=== PATIENT | female | born 1990 | race Caucasian/White ===

== ENCOUNTER 2016-08-07 11:55 | Emergency (ER) | payer OTHER ==
[2016-08-07 14:06] VITALS: BP 113/84
--- NOTE | 2016-08-17 15:34 | UC ---
General HPI - HPI Summary HPI Summary: Pt here w/ depression. She has known depression and PTSD from events during her childhood. Has seen many counselors, none of which she has found to be helpful. She was also released from her PCP's office d/t a disagreement w/ her provider - pt admits she was very upset when her PCP thought she was drug seeking as she reports she watched her mom use crack growing up which has caused many issues for her mentally/emotionally. She is not taking any medication for her depression/PTSD conditions. She has a small child and although her is emotionally supportive, he is very engaged with his business and therefore unable to help with rearing the child on a day to day basis. Pt reports she's tried inviting people over/out for mom/child play dates, etc w/o success. She feels people are avoiding her because they don't want to be around her in this depressed state. Concerned her child is not getting adequate socialization as a result as well. Denies SI/HI but just couldn't take it anymore today, so came in to see if anything could be done as she's tired all the time, not eating ( just doesn't feel like it, too much work) and overall lack of self care. She continues to provide for her child w/o neglect there but struggling each day. Has tried to have stay home a few hours to see if this could help, but seemed to be of little help and added stress to his professional goals of running a business. Additionally, she has some URI sx - mild throat irritation, nasal congestion, dry cough. Denies adriana fever, chills, N/V/D, rash, ab pain, myalgias. Thinks she has allergies as well. - History of Current Complaint Chief Complaint: UCGeneralIllness Stated Complaint: SINUS COMPLAINT Time Seen by Provider: 08/07/16 14:33 Hx Obtained From: Patient Pain Intensity: 0 - Allergy/Home Medications Allergies/Adverse Reactions: Allergies Allergy/AdvReac Type Severity Reaction Status Date / Time No Known Allergies Allergy Verified 08/13/16 07:58 PMH/Surg Hx/FS Hx/Imm Hx Previously Healthy: Yes Endocrine History Of: Denies: Diabetes, Thyroid Disease Cardiovascular History Of: Denies: Cardiac Disorders, Hypertension Respiratory History Of: Denies: COPD, Asthma GI/ History Of: Denies: Ulcer Psychological History Of: Reports: Anxiety, Depression - Surgical History Surgical History: None - Family History Known Family History: Positive: Other - substance abuse - mom used crack Negative: Hypertension, Diabetes Family History: Her father past away from COPD and he was homeless. - Social History Occupation: Unemployed - stay at home mom Lives: With Family - and child Alcohol Use: Rare Alcohol Amount: 1 DRINK/NIGHT Substance Use Type: None Substance Use Comment - Amount & Last Used: occasional Smoking Status (MU): Former Smoker Type: Cigarettes Amount Used/How Often: quit in 2014 Have You Smoked in the Last Year: Yes - Immunization History Most Recent Influenza Vaccination: declined 05/06/14 Most Recent Tetanus Shot: 06/14/14 Most Recent Pneumonia Vaccination: none Review of Systems Constitutional: Negative Skin: Negative Eyes: Negative ENT: Other - see HPI Respiratory: Other - see HPI Cardiovascular: Negative Gastrointestinal: Negative Genitourinary: Negative Motor: Negative Neurovascular: Negative Musculoskeletal: Negative Neurological: Negative Psychological: Other - see HPI - DENIES SI/HI All Other Systems Reviewed And Are Negative: Yes Physical Exam Triage Information Reviewed: Yes Appearance: No Pain Distress, Thin - ANXIOUS, upset - no signs of self-harm other than underweight but per report, this does not appear to be intentional although cannot definitively report at this time - appears to be more a 2ndry effect of depression, not primarily an eating d/o; hygiene is adequate Vital Signs: Initial Vital Signs Temp 98.9 F 08/07/16 13:54 Pulse 77 08/07/16 13:54 Resp 20 08/07/16 13:54 BP 113/84 08/07/16 13:54 Pulse Ox 100 08/07/16 13:54 Eye Exam: Normal Eyes: Positive: Conjunctiva Clear ENT Exam: Normal ENT: Positive: Hearing grossly normal, Pharynx normal, Nasal congestion - very mild, TMs normal. Negative: Nasal drainage, Tonsillar swelling, Tonsillar exudate Dental Exam: Normal Neck exam: Normal Neck: Positive: Supple, Nontender, No Lymphadenopathy Respiratory Exam: Normal Respiratory: Positive: Lungs clear, Normal breath sounds. Negative: Crackles, Rhonchi, Stridor, Wheezing Cardiovascular Exam: Normal Cardiovascular: Positive: RRR, No Murmur Abdominal Exam: Normal Abdomen Description: Positive: Nontender, No Organomegaly, Soft Bowel Sounds: Positive: Present Musculoskeletal Exam: Normal Musculoskeletal: Positive: Strength Intact Neurological Exam: Normal Neurological: Positive: Alert Psychological: Positive: Other: - anxious, tearful at times, hyperverbal - denies SI/HI Skin Exam: Normal Course/Dx - Course Course Of Treatment: Pt presents w/ acute on chronic depression. H/o PTSD and depression - wondering if there is a component of post depression here - since she denies SI/HI, cannot involuntarily commit. Explained she may go to ED for evaluation and consult w/ MH provider today if she feels this is pressing. Otherwise, may follow-up with a MH provider in the community ([facility]) and/or establish with a new PCP for referral as necessary. Education about importance of eating as lack of nutrition exacerbates anxiety/ depression as well as suppresses the immune system. Encouraged to try to make herself eat/drink at least small amounts to maintain better energy until she can get in w/ a MH provider for more guidance. Also discussed that medications would not be appropriate to start through this venue, however her PCP and/or MH provider may recommend one or multiple pending a formal intake. She declined to go to ED today - agrees w/ plan to establish w/ PCP and go to ED if SI/HI present and/or if she simply feels she cannot take care of her child. She feels safe to take care of her child at this time. Also reviewed URI sx - may be mild viral infection which she can tx w/ supportive care. May also be allergies and tx is almost same. Advised to return or f/u w/ PCP if sx persist or worsen. >30 mins spent counseling, planning and d/c'ing - Differential Dx - Multi-Symptom Provider Diagnoses: 1) Depression. 2) URI Discharge - Discharge Plan Condition: Stable Disposition: HOME Patient Education Materials: Depression (ED), Upper Respiratory Infection (ED) Referrals: [facility] [Outside] Additional Instructions: It is encouraged that you stay hydrated by drinking water, gatorade, juice, etc to prevent dehydration which can lead to dizziness and fatigue. You may also try eating small meals every 3 hours to prevent low sugar which can cause dizziness and fatigue as well as exacerbate your depression and feelings of anxiety. Please follow-up with a PCP [facility] - call the referral line this week to establish with a new provider. They may be able to help you with a treatment plan through their practice as well as refer to specialist as needed. *If you feel like you want to hurt yourself or someone else, please go to the ED or call 911. For your respiratory symptoms, you may try saline nasal rinse, throat gargles, tea and lozenges to help with your sore throat, ear pain/pressure and sinus pain /pressure. *If you develop fever, chills, eye pain, vomiting, diarrhea, syncope, go to ED
== END 2016-08-07 15:23 | disposition home or self-care (01) ==
LOC: UCEAST 11:55
DX: F32.9 Major depressive disorder, single episode, unspecified (principal); J06.9 Acute upper respiratory infection, unspecified; F41.9 Anxiety disorder, unspecified; Z87.891 Personal history of nicotine dependence
CPT/HCPCS: 99211; G0463

== ENCOUNTER 2016-08-13 07:26 | Emergency (ER) | payer OTHER ==
[2016-08-13 08:25] LABS: Hematocrit 41 % (35-47); Hemoglobin 13.6 g/dl (12.0-16.0); Mean Corpuscular HGB Conc 33 g/dl (31-36); Mean Corpuscular Hemoglobin 29 pg (27-31); Mean Corpuscular Volume 88 fL (80-97); Mean Platelet Volume 7 um3 (7.4-10.4); Red Blood Count 4.69 10^6/ul (4.0-5.4); Red Cell Distribution Width 14 % (10.5-15); White Blood Count 6.1 10^3/ul (3.5-10.8)
[2016-08-13 08:41] LABS: Anion Gap 5 mmol/L (2-11); Blood Urea Nitrogen 9 mg/dL (6-24); CO2 Carbon Dioxide 26 mmol/L (22-32); Chloride 107 mmol/L (101-111); Glucose 80 mg/dL (70-100); Potassium 3.7 mmol/L (3.5-5.0); Sodium 138 mmol/L (133-145)
[2016-08-13 08:42] LABS: ALT 10 U/L (7-52); AST 13 U/L (13-39); Alkaline Phosphatase 38 U/L (34-104); BUN/Creatinine Ratio 15.3 (8-20); C Reactive Protein < 1.00 mg/L (< 5.00); Calcium 9.2 mg/dL (8.6-10.3); EGFR African American 157.2 (>60); EGFR Non-African American 122.3 (>60); Lipase 22 U/L (11.0-82.0)
[2016-08-13 09:02] LABS: Urine Bilirubin Negative (Negative); Urine Glucose Negative (Negative); Urine Nitrite Negative (Negative)
--- NOTE | 2016-08-13 09:14 | RAD ---
INDICATION: Left lower quadrant pain. Evaluate for ovarian cyst COMPARISON: Pelvic sonogram July 19, 2010 TECHNIQUE: Longitudinal and transverse transvaginal scans of the pelvis were obtained. FINDINGS: Uterus: The uterus is normal in size. There are no focal masses. 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 The uterus measures 9.4 x 4.1 x 6.3 cm. Endometrial thickness: The endometrial thickness is measured at 0.9 cm on the right and 1.0 cm on the left cm. . Free fluid: Mild free fluid in the cul-de-sac and left adnexa . Ovaries: The ovaries are normal in size. The right ovary measures 3.0 x 2.3 x 5.2 cm. The left ovary measures 5.2 x 3.0 x 4.4 cm. There are small follicles in addition to a 2.7 x 1.9 x 2.8 cm left ovarian cyst. Doppler interrogation demonstrates flow to each ovary. Other: None IMPRESSION: SUSPECT BICORNUATE UTERUS. 2. 8 CM LEFT OVARIAN CYST. SMALL AMOUNT OF FREE FLUID.
[2016-08-13 09:53] VITALS: BP 100/72
--- NOTE | 2016-08-13 18:16 | ED ---
Parveen Celis Benjamin, scribed for Lorne Bueno MD on 08/13/16 at 0759 . Abdominal Pain/Female - HPI Summary HPI Summary: 25yo female c/o LLQ and suprapubic pain since last night, 1 hour after intercourse with her partner. Pain does not radiates anywhere. Pt states that she has an abnormally shaped uterus, and have had similar pain before after intercourse. Pain worsens when leaning forward. Pt denies chances of , is 1 week prior to her anticipated MP. Denies any vaginal bleeding or discharge. No hx of ovarian cysts. - History of Current Complaint Chief Complaint: EDAbdPain Stated Complaint: LT SIDE PELVIC PAIN Time Seen by Provider: 08/13/16 07:45 Hx Obtained From: Patient Hx Last Menstrual Period: 07/30/16 Onset/Duration: Sudden Onset, Lasting Hours, Still Present Timing: Constant Severity Initially: Moderate Severity Currently: Moderate Pain Intensity: 5 Pain Scale Used: 0-10 Numeric Location: Discrete At: LLQ, Suprapubic Radiates: No Aggravating Factor(s): Movement - leaning forward Alleviating Factor(s): Nothing Associated Signs and Symptoms: Negative: Fever, Blood in Stool, Vaginal Bleeding , Vaginal Discharge Allergies/Adverse Reactions: Allergies Allergy/AdvReac Type Severity Reaction Status Date / Time No Known Allergies Allergy Verified 08/13/16 07:58 Home Medications: Home Medications NK [No Home Medications Reported] 08/13/16 [History Confirmed 08/13/16] PMH/Surg Hx/FS Hx/Imm Hx Endocrine/Hematology History: Denies: Hx Diabetes, Hx Thyroid Disease Cardiovascular History: Denies: Hx Hypertension Respiratory History: Denies: Hx Asthma, Hx Chronic Obstructive Pulmonary Disease (COPD) GI History: Denies: Hx Ulcer Psychiatric History: Reports: Hx Anxiety, Hx Depression, Hx Post Traumatic Stress Disorder - Currently seeing counselor for symptom management Infectious Disease History: No Infectious Disease History: Denies: Hx Clostridium Difficile, Hx Hepatitis, Hx Human Immunodeficiency Virus (HIV), Hx of Known/Suspected MRSA, Hx Shingles, Hx Tuberculosis, Hx Known/ Suspected VRE, Hx Known/Suspected VRSA, History Other Infectious Disease, Traveled Outside the [place] in Last 30 Days - Family History Known Family History: Negative: Hypertension, Diabetes Family History: Her father past away from COPD and he was homeless. - Social History Occupation: Employed Full-time Lives: With Family Alcohol Use: Rare Alcohol Amount: 1 DRINK/NIGHT Substance Use Type: Reports: None Substance Use Comment - Amount & Last Used: occasional Smoking Status (MU): Former Smoker Type: Cigarettes Amount Used/How Often: quit in 2014 Have You Smoked in the Last Year: Yes Review of Systems Constitutional: Negative Eyes: Negative ENT: Negative Cardiovascular: Negative Respiratory: Negative Positive: Abdominal Pain - suprapubic, LLQ . Negative: Vomiting, Diarrhea, Nausea Genitourinary: Negative Negative: discharge, flank pain, hematuria Musculoskeletal: Negative Skin: Negative Neurological: Negative Psychological: Normal All Other Systems Reviewed And Are Negative: Yes Physical Exam - Summary Physical Exam Summary: The patient is well-nourished in no acute distress and in no acute pain. The skin is warm and dry and skin color reflects adequate perfusion. HEENT: The head is normocephalic and atraumatic. The pupils are equal and reactive. The conjunctivae are clear and without drainage. Nares are patent and without drainage. Mouth reveals moist mucous membranes and the throat is without erythema and exudate. The external ears are intact. The ear canals are patent and without drainage. The tympanic membranes are intact. Neck is supple with full range of motion and non-tender. There are no carotid bruits. There is no neck vein distension. Respiratory: Chest is non-tender. Lungs are clear to auscultation and breath sounds are symmetrical and equal. Cardiovascular: Hear is regular rate and rhythm. There is no murmur or rub auscultated. There is no peripheral edema and pulses are symmetrical and equal. Abdomen: The abdomen is soft. There are normal bowel sounds heard in all four quadrants and there is no organomegaly palpated.Tenderness over bilateral ovaries. Suprapubic tenderness. No Mc[place]neys or [place]. No guarding, no rebound. Musculoskeletal: There is no back pain noted. Extremities are non-tender with full range of motion. There is good capillary refill. There is no peripheral edema or calf tenderness elicited. No CVA tenderness. Neurological: Patient is alert and oriented to person, place and time. The patient has symmetrical motor strength in all four extremities. Cranial nerves are grossly intact. Deep tendon reflexes are symmetrical and equal in all four extremities. Psychiatric: The patient has an appropriate affect and does not exhibit any anxiety or depression. Triage Information Reviewed: Yes Vital Signs On Initial Exam: Initial Vitals Temp Pulse Resp BP Pulse Ox 98.6 F 81 16 107/71 100 08/13/16 07:29 08/13/16 07:29 08/13/16 07:29 08/13/16 07:29 08/13/16 07:29 Vital Signs Reviewed: Yes Diagnostics - Vital Signs Vital Signs Temp Pulse Resp BP Pulse Ox 08/13/16 07:32 98.9 F 73 20 107/71 100 08/13/16 07:29 98.6 F 81 16 107/71 100 - Laboratory Lab Results: Lab Results 08/13/16 08/13/16 08/13/16 Range/Units 08:12 08:12 08:55 WBC 6.1 (3.5-10.8) 10^3/ul RBC 4.69 (4.0-5.4) 10^6/ul Hgb 13.6 (12.0-16.0) g/dl Hct 41 (35-47) % MCV 88 (80-97) fL MCH 29 (27-31) pg MCHC 33 (31-36) g/dl RDW 14 (10.5-15) % Plt Count 343 (150-450) 10^3/ul MPV 7 L (7.4-10.4) um3 Neut % (Auto) 52.4 (38-83) % Lymph % (Auto) 35.2 (25-47) % [place] % (Auto) 7.4 (1-9) % Eos % (Auto) 3.5 (0-6) % Baso % (Auto) 1.5 (0-2) % Absolute Neuts (auto) 3.2 (1.5-7.7) 10^3/ul Absolute Lymphs (auto) 2.2 (1.0-4.8) 10^3/ul Absolute Monos (auto) 0.5 (0-0.8) 10^3/ul Absolute Eos (auto) 0.2 (0-0.6) 10^3/ul Absolute Basos (auto) 0.1 (0-0.2) 10^3/ul Absolute Nucleated RBC 0.01 10^3/ul Nucleated RBC % 0.1 Sodium 138 (133-145) mmol/L Potassium 3.7 (3.5-5.0) mmol/L Chloride 107 (101-111) mmol/L Carbon Dioxide 26 (22-32) mmol/L Anion Gap 5 (2-11) mmol/L BUN 9 (6-24) mg/dL Creatinine 0.59 (0.51-0.95) mg/dL Est GFR ( Amer) 157.2 (>60) Est GFR (Non-Af Amer) 122.3 (>60) BUN/Creatinine Ratio 15.3 (8-20) Glucose 80 (70-100) mg/dL Calcium 9.2 (8.6-10.3) mg/dL Total Bilirubin 0.40 (0.2-1.0) mg/dL AST 13 (13-39) U/L ALT 10 (7-52) U/L Alkaline Phosphatase 38 (34-104) U/L C-Reactive Protein < 1.00 (< 5.00) mg/L Total Protein 7.0 (6.4-8.9) g/dL Albumin 4.0 (3.2-5.2) g/dL Globulin 3.0 (2-4) g/dL Albumin/Globulin Ratio 1.3 (1-3) Lipase 22 (11.0-82.0) U/L Beta HCG, Quant < 0.60 mIU/mL Urine Color Yellow Urine Appearance Clear Urine pH 7.0 (5-9) Ur Specific [place] 1.017 (1.010-1.030) Urine Protein Negative (Negative) Urine Ketones Trace H (Negative) Urine Blood Negative (Negative) Urine Nitrate Negative (Negative) Urine Bilirubin Negative (Negative) Urine Urobilinogen Negative (Negative) Ur Leukocyte Esterase Negative (Negative) Urine Glucose Negative (Negative) Urine Ascorbic Acid * H (Negative) Result Diagrams: 08/13/16 08:12 08/13/16 08:12 Lab Statement: Any lab studies that have been ordered have been reviewed, and results considered in the medical decision making process. - Ultrasound No standard instances Ultrasound Interpretation: Positive (See Comments) - Transvaginal US: IMPRESSION : SUSPECT BICORNUATE UTERUS. 2. 8 CM LEFT OVARIAN CYST. SMALL AMOUNT OF FREE FLUID. Ultrasound Interpretation Completed By: Radiologist Re-Evaluation - Re-Evaluation First Eval Re-Evaluation Time: 09:31 - reviewed US and lab results, and discussed followup plan. Comment: Pt reports discomfort, but denies pain meds. Abdominal Pain Fem Course/Dx - Diagnoses Differential Diagnosis: Positive: Ovarian Cyst, , Urinary Tract Infection Provider Diagnoses: Left ovarian cyst, Ruptured ovarian cyst Discharge - Discharge Plan Condition: Stable Disposition: HOME Patient Education Materials: Ovarian Cyst (ED) Referrals: No Primary Care Phys,NOPCP [Primary Care Provider] - Additional Instructions: PLEASE FOLLOW UP WITH YOUR PRIMARY CARE PHYSICIAN The documentation as recorded by the Parveen avila Benjamin accurately reflects the service I personally performed and the decisions made by me, Lorne Bueno MD.
== END 2016-08-13 09:50 | disposition home or self-care (01) ==
LOC: ED 07:26
DX: N83.202 Unspecified ovarian cyst, left side (principal); R10.32 Left lower quadrant pain; Z87.891 Personal history of nicotine dependence
CPT/HCPCS: 36415; 76830; 80053; 81003; 83690; 84702; 85025; 86140; 99283

== ENCOUNTER 2017-02-24 11:07 | Emergency (ER) | payer OTHER ==
[2017-02-24 13:33] VITALS: BP 103/58
--- NOTE | 2017-02-24 13:36 | ED ---
Throat Pain/Nasal Congestion - HPI Summary HPI Summary: Patient presents to the ED with CC of right ear pain x 2 weeks. Worsening over the last week, but improved today. She was seen at [facility] yesterday and given a nasal decongestant with a steroid. She denies this helping. Provider did not see any signs of infection and she was not given an abx. Today, the pain was worse this morning. At this time, she denies any pain. Pain is worse in the morning and at night, and better during the day. Denies drainage. Denies neck pain or throat pain. Enlarged R cervical LN per patient. Patient is . - History of Current Complaint Chief Complaint: EDEarPain Time Seen by Provider: 02/24/17 11:30 Hx Obtained From: Patient Onset/Duration: Sudden Onset Severity: Moderate - Epiglottits Risk Factors Epiglottis Risk Factors: Negative - Allergies/Home Medications Allergies/Adverse Reactions: Allergies Allergy/AdvReac Type Severity Reaction Status Date / Time No Known Allergies Allergy Verified 08/13/16 07:58 PMH/Surg Hx/FS Hx/Imm Hx Previously Healthy: Yes Endocrine/Hematology History: Denies: Hx Diabetes, Hx Thyroid Disease Cardiovascular History: Denies: Hx Hypertension Respiratory History: Denies: Hx Asthma, Hx Chronic Obstructive Pulmonary Disease (COPD) GI History: Denies: Hx Ulcer Psychiatric History: Reports: Hx Anxiety, Hx Depression, Hx Post Traumatic Stress Disorder - Currently seeing counselor for symptom management - Immunization History Hx Pertussis Vaccination: No Immunizations Up to Date: Unable to Obtain/Confirm Infectious Disease History: No Infectious Disease History: Denies: Hx Clostridium Difficile, Hx Hepatitis, Hx Human Immunodeficiency Virus (HIV), Hx of Known/Suspected MRSA, Hx Shingles, Hx Tuberculosis, Hx Known/ Suspected VRE, Hx Known/Suspected VRSA, History Other Infectious Disease, Traveled Outside the [place] in Last 30 Days - Family History Known Family History: Negative: Hypertension, Diabetes Family History: Her father past away from COPD and he was homeless. - Social History Occupation: Employed Full-time Lives: With Family Alcohol Use: Rare Alcohol Amount: 1 DRINK/NIGHT Hx Substance Use: No Substance Use Type: Reports: None Substance Use Comment - Amount & Last Used: occasional Hx Tobacco Use: Yes Smoking Status (MU): Light Every Day Tobacco Smoker Type: Cigarettes Amount Used/How Often: quit in 2014 Have You Smoked in the Last Year: Yes Review of Systems Constitutional: Negative Negative: Chills, Fatigue, Skin Diaphoresis Eyes: Negative Positive: Ear Ache Cardiovascular: Negative Respiratory: Negative Genitourinary: Negative Positive: no symptoms reported, see HPI Musculoskeletal: Negative Neurological: Negative All Other Systems Reviewed And Are Negative: Yes Physical Exam Triage Information Reviewed: Yes Vital Signs On Initial Exam: Initial Vitals Temp Pulse Resp BP Pulse Ox 97.3 F 68 16 124/74 99 02/24/17 11:25 02/24/17 11:25 02/24/17 11:25 02/24/17 11:25 02/24/17 11:25 Vital Signs Reviewed: Yes Appearance: Positive: Well-Appearing, Well-Nourished Skin: Positive: Warm, Skin Color Reflects Adequate Perfusion Head/Face: Positive: Normal Head/Face Inspection Eyes: Positive: EOMI, LUNA, Conjunctiva Clear ENT: Positive: Pharynx normal, TMs normal, Uvula midline. Negative: Nasal congestion, Nasal drainage, TM bulging, TM dull, TM red, Tonsillar swelling, Tonsillar exudate, Dental tenderness, Sinus tenderness Neck: Positive: Supple, No Lymphadenopathy Respiratory/Lung Sounds: Positive: Clear to Auscultation, Breath Sounds Present Cardiovascular: Positive: RRR, Pulses are Symmetrical in both Upper and Lower Extremities Musculoskeletal: Positive: Normal, Strength/ROM Intact Neurological: Positive: Speech Normal Psychiatric: Positive: Normal AVPU Assessment: Alert Diagnostics - Vital Signs Vital Signs Temp Pulse Resp BP Pulse Ox 02/24/17 11:25 97.3 F 68 16 124/74 99 - Laboratory Lab Statement: Any lab studies that have been ordered have been reviewed, and results considered in the medical decision making process. EENT Course/Dx - Course Course Of Treatment: Physical exam includes tragus with pain on palpation. Canal appears normal without edema or erythema. No evidence of an air-fluid level along the tympanic membrane. TM's appear intact and non-erythematous. Cone of light visualized. Does not appear to be mastoiditis d/t no pain on palpation of mastoid or erythema over mastoid. Patient is not given pain management d/t . Given Sudafed for fluid behind the TM. However, d/t - discussed with patient to take 30mg directly after without again for 4-6 hours. According to UTD, medication is excreted between 3-8 hours completely and only 4% of adult dose crossed through breast milk. Patient is given these parameters and agrees with plan. - Differential Diagnoses Differential Diagnoses: Otitis Externa, Otitis Media, Pain of Unknown Etiology - Diagnoses Provider Diagnoses: Right ear pain Discharge - Discharge Plan Condition: Stable Disposition: HOME Prescriptions: Pseudoephedrine TAB* [Sudafed TAB*] 30 mg PO Q6H PRN #12 tab MDD 4 PRN Reason: Congestion Patient Education Materials: Pseudoephedrine (By mouth), Earache (ED) Referrals: Nicole Pepper MD [Primary Care Provider] - Additional Instructions: Take sudafed up to every 6 hours as needed as a nasal decongestant As discussed, breast-feeding implications deemed this medication safe. Use immediately after breast feeding and medication will be out of system in 4- 6 hours.
== END 2017-02-24 13:34 | disposition home or self-care (01) ==
LOC: ED 11:07
DX: H92.01 Otalgia, right ear (principal); F17.210 Nicotine dependence, cigarettes, uncomplicated; F41.9 Anxiety disorder, unspecified; F32.9 Major depressive disorder, single episode, unspecified; F43.10 Post-traumatic stress disorder, unspecified
CPT/HCPCS: 99282

== ENCOUNTER 2017-07-14 21:12 | Emergency (ER) | payer OTHER ==
--- OUTSIDE RECORDS SUMMARY | 2017-07-14 21:27 | XMS REPORT ---
:1990 External Reference #:[id number] Author Organization [facility] Address [address] [address] Phone [phone] Care Team Providers Name Role Phone Nicole Pepper MD Primary Care Physician Unavailable Payers Type Date Identification Numbers Payment Provider Subscriber Commercial Effective: Policy Number: [id number] Kleber Barros 2016 Group Number: [id number] [address] PayID: [id number] [place] [address] Problems Date Description Provider Status Onset: 01/16/2016 Chronic rhinitis Harris Boo M.D. 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 Takes a drag every once in awhile. Cigars Never Smoked Cigars Pipe Never Smoked A Pipe Smokeless Tobacco Never Used Smokeless Tobacco ETOH Use Rarely consumes alcohol Smoking Patient has never smoked Allergies, Adverse Reactions, Alerts Date Description Reaction Status Severity Comments 01/16/2016 NKDA active Medications Medication Date Status Form Strength Qnty SIG Indications Ordering Provider No Active Active Unknown Medications 018 Mupirocin 0 Hx Ointment 2% apply to Unknown 000 - both nostrils 018 twice a day for 7 days Vital Signs Date Vital Result Comment 06/25/2017 Height 66 inches 5'6" Weight 127.00 lb Respiratory Rate 14 /min Pain Level 3 BMI (Body Mass Index) 20.5 kg/m2 05/28/2017 Height 66 inches 5'6" Weight 127.00 lb BP Systolic 110 mmHg BP Diastolic 68 mmHg Respiratory Rate 16 /min Body Temperature 97.0 F Pain Level 3 BMI (Body Mass Index) 20.5 kg/m2 01/16/2016 Height 55.25 inches 4'7.25" Weight 132.12 lb Heart Rate 80 /min BP Systolic Sitting 112 mmHg BP Diastolic Sitting 70 mmHg BMI (Body Mass Index) 30.4 kg/m2 Results Description No Information Procedures Description No Information Encounters Type Date Location Provider CPT E/M Dx Office Visit 05/28/2017 [place] [address] S93.492A 9:30a [facility] Office Visit 01/16/2016 [facility], [address] J31.0 2:30p [facility] Plan of Care 06/25/2017 - Braden Tucker [id number] Sprain of other ligament of left ankle, initial encounterNew Xrays:MRI Ankle Left W/OFollow up:Follow Up: after testing / imaging is completed
[2017-07-14] MEDS ORDERED: ALPRAZolam TAB* 0.5 MG PO ONE (22:03)
[2017-07-14 22:18] LABS: Urine Appearance Clear; Urine Blood Negative (Negative); Urine Color Straw; Urine Ketones Trace (Negative); Urine Protein Negative (Negative); Urine Specific Gravity 1.008 (1.010-1.030); Urine Urobilinogen Negative (Negative)
[2017-07-14 22:19] LABS: ABS Basophils 0.1 10^3/ul (0-0.2); ABS Eosinophils 0.2 10^3/ul (0-0.6); ABS Monocytes 0.5 10^3/ul (0-0.8); ABS Neutrophils 4.2 10^3/ul (1.5-7.7); ABS Nucleated RBC 0 10^3/ul; Hematocrit 42 % (35-47); Hemoglobin 14.3 g/dl (12.0-16.0); Lymphocyte % 37.4 % (25-47); Mean Corpuscular HGB Conc 34 g/dl (31-36); Mean Corpuscular Hemoglobin 31 pg (27-31); Mean Corpuscular Volume 90 fL (80-97); Mean Platelet Volume 7.7 um3 (7.4-10.4); Nucleated Red Blood Cells % 0.1; Platelet Count 337 10^3/ul (150-450); Red Blood Count 4.68 10^6/ul (4.0-5.4); Red Cell Distribution Width 14 % (10.5-15)
[2017-07-14] MEDS ORDERED: Haloperidol INJ IV/IM* 5 MG/ML AMP IM ONE (22:24)
[2017-07-14] MEDS ORDERED: LORazepam INJ* 2 MG/ML 1 ML VIAL IM ONE (22:25)
[2017-07-14] MEDS ORDERED: diPHENhydraMINE IV* 50 MG/ML 1 ml VIAL (BENADRYL) IM ONE (22:25)
[2017-07-14] MEDS ORDERED: Potassium Chlor TAB* 20 MEQ TAB.ER PO ONE (23:24)
--- NOTE | 2017-07-15 06:12 | PN ---
ED Flex Patient Progress Note Subjective: This is a 26 year-old F who is pending psychiatric evaluation at [facility] secondary to SI, helpless, PTSD and pending homelessness w/ financial instability . Pt offers no complaints at this time other than she doesn't want to be here - wants to make her 8:30am ortho appt to review a recent MRI. She admits she asked her friends to bring her here last night. Objective: Vitals: Most recent vital signs documented below. General NAD, Alert and oriented x3. Heart: rrr S1/S2 AB: soft, NTTP INTEG: pinpoint area of scab over Lt delt - no erythema, no edema, no ecchymosis , no bleeding Lungs: CTA or with rales, rhonchi, wheezing Assessment: SI PTSD Plan: Pending psychiatric evaluation. Will follow up daily _while in ED____. Vital Signs Temp Pulse Resp BP Pulse Ox 98.6 F 80 18 102/62 99 07/15/17 05:13 07/15/17 05:13 07/15/17 05:13 07/15/17 05:13 07/15/17 05:13 Lab Results - Entire Visit 07/14/17 07/14/17 07/14/17 21:55 21:55 21:55 WBC 8.0 RBC 4.68 Hgb 14.3 Hct 42 MCV 90 MCH 31 MCHC 34 RDW 14 Plt Count 337 MPV 7.7 Neut % (Auto) 52.1 Lymph % (Auto) 37.4 [place] % (Auto) 6.7 Eos % (Auto) 3.0 Baso % (Auto) 0.8 Absolute Neuts (auto) 4.2 Absolute Lymphs (auto) 3.0 Absolute Monos (auto) 0.5 Absolute Eos (auto) 0.2 Absolute Basos (auto) 0.1 Absolute Nucleated RBC 0 Nucleated RBC % 0.1 Sodium Potassium Chloride Carbon Dioxide Anion Gap BUN Creatinine Est GFR ( Amer) Est GFR (Non-Af Amer) BUN/Creatinine Ratio Glucose Calcium Total Bilirubin AST ALT Alkaline Phosphatase Total Protein Albumin Globulin Albumin/Globulin Ratio TSH Beta HCG, Quant Urine Color Straw Urine Appearance Clear Urine pH 5.0 Ur Specific [place] 1.008 L Urine Protein Negative Urine Ketones Trace A Urine Blood Negative Urine Nitrate Negative Urine Bilirubin Negative Urine Urobilinogen Negative Ur Leukocyte Esterase Negative Urine Glucose Negative Salicylates Urine Opiates Screen None detected Acetaminophen Ur Barbiturates Screen None detected Ur Phencyclidine Scrn None detected Ur Amphetamines Screen None detected U Benzodiazepines Scrn None detected Urine Cocaine Screen None detected U Cannabinoids Screen Presumptive positive A Serum Alcohol 07/14/17 21:55 WBC RBC Hgb Hct MCV MCH MCHC RDW Plt Count MPV Neut % (Auto) Lymph % (Auto) Galax % (Auto) Eos % (Auto) Baso % (Auto) Absolute Neuts (auto) Absolute Lymphs (auto) Absolute Monos (auto) Absolute Eos (auto) Absolute Basos (auto) Absolute Nucleated RBC Nucleated RBC % Sodium 141 Potassium 3.2 L Chloride 108 Carbon Dioxide 25 Anion Gap 8 BUN 11 Creatinine 0.68 Est GFR ( Amer) 132.5 Est GFR (Non-Af Amer) 103.0 BUN/Creatinine Ratio 16.2 Glucose 90 Calcium 9.4 Total Bilirubin 0.30 AST 14 ALT 11 Alkaline Phosphatase 39 Total Protein 7.3 Albumin 4.5 Globulin 2.8 Albumin/Globulin Ratio 1.6 TSH 1.61 Beta HCG, Quant < 0.60 Urine Color Urine Appearance Urine pH Ur Specific [place] Urine Protein Urine Ketones Urine Blood Urine Nitrate Urine Bilirubin Urine Urobilinogen Ur Leukocyte Esterase Urine Glucose Salicylates < 2.50 Urine Opiates Screen Acetaminophen < 15 Ur Barbiturates Screen Ur Phencyclidine Scrn Ur Amphetamines Screen U Benzodiazepines Scrn Urine Cocaine Screen U Cannabinoids Screen Serum Alcohol 178 H
[2017-07-15 06:18] VITALS: BP 108/64
--- NOTE | 2017-07-15 06:19 | ED ---
Mamta Celis Gabriel, scribed for Nolvia Potts MD on 07/14/17 at 2147 . Psychiatric Complaint - HPI Summary HPI Summary: This patient is a 26 year old F presenting to [facility] with a chief complaint of SI. Patient reports alcohol use. Pt states she has PTSD that is triggered by hospitals and that currently she is having a dissociative episode. Pt is tearful and repeats she wants her doctor, Dr. nicole pepper. She states he doesnt feel safe here and will not offer up any information. There are new lacerations on the left forearm she states she recently inflicted to control her pain - History Of Current Complaint Chief Complaint: EDMentalHealth Time Seen by Provider: 07/14/17 21:36 Hx Obtained From: Patient Hx Last Menstrual Period: 07/30/16 Onset/Duration: Still Present Timing: Constant Severity Initially: Moderate Severity Currently: Moderate Aggravating Factor(s): Alcohol Use Related History: Positive For: Prior Psychiatric Issues Has Suicidal: Reports: Thoughts, With A Plan, Demonstrates Gesture - Allergies/Home Medications Allergies/Adverse Reactions: Allergies Allergy/AdvReac Type Severity Reaction Status Date / Time ziprasidone [From Geodon] AdvReac See Comment Verified 07/15/17 05:55 Home Medications: Home Medications clonazePAM [Clonazepam] 0.5 mg PO PRN 07/14/17 [History] PMH/Surg Hx/FS Hx/Imm Hx Endocrine/Hematology History: Denies: Hx Diabetes, Hx Thyroid Disease Cardiovascular History: Denies: Hx Hypertension, Hx Pacemaker/ICD Respiratory History: Denies: Hx Asthma, Hx Chronic Obstructive Pulmonary Disease (COPD) GI History: Denies: Hx Ulcer Sensory History: Denies: Hx Hearing Aid Psychiatric History: Reports: Hx Anxiety, Hx Depression, Hx Post Traumatic Stress Disorder - Currently seeing counselor for symptom management Denies: Hx Panic Disorder Infectious Disease History: No Infectious Disease History: Denies: Hx Clostridium Difficile, Hx Hepatitis, Hx Human Immunodeficiency Virus (HIV), Hx of Known/Suspected MRSA, Hx Shingles, Hx Tuberculosis, Hx Known/ Suspected VRE, Hx Known/Suspected VRSA, History Other Infectious Disease, Traveled Outside the [place] in Last 30 Days - Family History Known Family History: Negative: Hypertension, Diabetes Family History: Her father past away from COPD and he was homeless. - Social History Alcohol Use: Rare Alcohol Amount: 1 DRINK/NIGHT Hx Substance Use: No Substance Use Type: Reports: None Substance Use Comment - Amount & Last Used: occasional Hx Tobacco Use: Yes Smoking Status (MU): Light Every Day Tobacco Smoker Type: Cigarettes Amount Used/How Often: quit in 2014 Have You Smoked in the Last Year: Yes Review of Systems Positive: Other - lac to left wrist Positive: Depressed, Other - SI All Other Systems Reviewed And Are Negative: Yes Physical Exam - Summary Physical Exam Summary: VITAL SIGNS: Reviewed. GENERAL: Patient is a well-developed and nourished femalewho is lying comfortable in the stretcher. Patient is not in any acute respiratory distress. HEAD AND FACE: No signs of trauma. No ecchymosis, hematomas or skull depressions. No sinus tenderness. EYES: PERRLA, EOMI x 2, No injected conjunctiva, no nystagmus. EARS: Hearing grossly intact. Ear canals and tympanic membranes are within normal limits. MOUTH: Oropharynx within normal limits. NECK: Supple, trachea is midline, no adenopathy, no JVD, no carotid bruit, no c- spine tenderness, neck with full ROM. CHEST: Symmetric, no tenderness at palpation LUNGS: Clear to auscultation bilaterally. No wheezing or crackles. CVS: Regular rate and rhythm, S1 and S2 present, no murmurs or gallops appreciated. ABDOMEN: Soft, non-tender. No signs of distention. No rebound no guarding, and no masses palpated. Bowel sounds are normal. EXTREMITIES: FROM in all major joints, no edema, no cyanosis or clubbing. NEURO: Alert and oriented x 3. No acute neurological deficits. Speech is normal and follows commands. SKIN: Self inflicted wounds to left forearm Triage Information Reviewed: Yes Vital Signs On Initial Exam: Initial Vitals Temp Pulse Resp BP Pulse Ox 97.5 F 108 22 111/80 100 07/14/17 21:15 07/14/17 21:15 07/14/17 21:15 07/14/17 21:15 07/14/17 21:15 Vital Signs Reviewed: Yes Diagnostics - Vital Signs Vital Signs Temp Pulse Resp BP Pulse Ox 07/14/17 21:15 97.5 F 108 22 111/80 100 - Laboratory Result Diagrams: 07/14/17 21:55 07/14/17 21:55 Lab Statement: Any lab studies that have been ordered have been reviewed, and results considered in the medical decision making process. Re-Evaluation - Re-Evaluation First Eval Re-Evaluation Time: 22:29 Change: Worse Comment: Pt is insisting she wants to go home at this time. Since the patient expressed suicidal ideations she cannot be allowed to leave the ED. Pt will be medicated at this time. Course/Dx - Course Assessment/Plan: This patient is a 26 year old F presenting to [facility] with a chief complaint of SI. Patient reports alcohol use. Pt states she has PTSD that is triggered by hospitals and that currently she is having a dissociative episode. Pt is tearful and repeats she wants her doctor, Dr. nicole pepper. She states he doesnt feel safe here and will not offer up any information. There are new lacerations on the left forearm she states she recently inflicted to control her pain. Patient was evaluated by Dr. Golden and he determined she was stable to be discharged home. Dx adjustment stress - Differential Dx/Clinical Impression Provider Diagnosis: Stress and adjustment reaction Discharge - Sign-Out/Discharge Documenting (check all that apply): Discharge - Discharge Plan Condition: Stable Disposition: HOME Referrals: Nicole Pepper MD [Primary Care Provider] - The documentation as recorded by the Mamta avila Gabriel accurately reflects the service I personally performed and the decisions made by me, Nolvia Potts MD.
== END 2017-07-15 06:30 | disposition home or self-care (01) ==
LOC: ED 21:12
DX: F43.9 Reaction to severe stress, unspecified (principal); F43.20 Adjustment disorder, unspecified; F32.9 Major depressive disorder, single episode, unspecified; R45.851 Suicidal ideations; F17.210 Nicotine dependence, cigarettes, uncomplicated
CPT/HCPCS: 36415; 80053; 80307; 80320; 80329; 81003; 84443; 84702; 85025; 96372; 99285; A9270-GY; G0480; J1200; J1630; J2060

== ENCOUNTER 2021-12-29 19:58 | Inpatient (IN) ==
[2021-12-29] MEDS ORDERED: Lactated Ringers 1000 ml BAG 1,000 ML IV ONE (20:34)
[2021-12-29] MEDS ORDERED: Ondansetron 4 mg VIAL 2 MG/ML 2 ml VIAL IV ONE (20:35)
[2021-12-29 20:52] LABS: ABS Basophils 0.1 10^3/ul (0-0.2); ABS Eosinophils 0.1 10^3/ul (0-0.6); ABS Lymphocytes 2.7 10^3/ul (1.0-4.8); ABS Monocytes 0.4 10^3/ul (0-0.8); Eosinophil % 1.6 %; Hematocrit 45 % (35-47); Hemoglobin 14.4 g/dL (12.0-16.0); Lymphocyte % 36.8 %; Mean Corpuscular HGB Conc 32 g/dL (31-36); Mean Corpuscular Hemoglobin 30 pg (27-31); Mean Corpuscular Volume 92 fL (80-97); Mean Platelet Volume 7.6 fL (7.4-10.4); Platelet Count 326 10^3/uL (150-450); Red Blood Count 4.84 10^6 /uL (3.70-4.87); Red Cell Distribution Width 13 % (10-15); White Blood Count 7.3 10^3/uL (3.5-10.8)
[2021-12-29 21:59] LABS: ALT 25 U/L (7-52); AST 25 U/L (13-39); Acetaminophen < 15 mcg/mL; Albumin 4.6 g/dL (3.2-5.2); Albumin/Globulin Ratio 1.6 (1-3); Alcohol, S 269 mg/dL (<13); Alkaline Phosphatase 50 U/L (35-149); Anion Gap 15 mmol/L (2-11); Blood Urea Nitrogen 10 mg/dL (6-24); CO2 Carbon Dioxide 20 mmol/L (22-32); Chloride 107 mmol/L (101-111); Globulin 2.9 g/dL (2-4); Glucose 96 mg/dL (70-100); Potassium 3.9 mmol/L (3.5-5.0); Salicylate < 2.50 mg/dL (<30); Sodium 142 mmol/L (135-145); Total Protein 7.5 g/dL (6.4-8.9)
[2021-12-29 22:05] LABS: HCG Pregnancy < 0.60 mIU/mL
[2021-12-29 22:07] LABS: Calcium 9.8 mg/dL (8.6-10.3)
[2021-12-29 22:13] LABS: TSH Ultra Thyroid Stim Horm 1.92 mcIU/mL (0.34-5.60)
[2021-12-30 01:50] LABS: Urine Benzodiazepine Screen None Detected (None Detect); Urine Cannabinoids Screen Presumptive Positive (None Detect); Urine Opiates Screen None Detected (None Detect)
[2021-12-30 01:52] LABS: Urine Appearance Clear; Urine Bilirubin Negative (Negative); Urine Blood 1+ (Negative); Urine Color Yellow; Urine Glucose Negative (Negative); Urine Ketones Trace (Negative); Urine Nitrite Negative (Negative); Urine Protein Negative (Negative); Urine Specific Gravity 1.012 (1.002-1.030); Urine Urobilinogen Negative (Negative)
[2021-12-30 02:19] LABS: Urine Bacteria 1+ (Absent); Urine Red Blood Cell Trace(0-2/hpf) (Absent); Urine Squamous Epithelial Cell Present (Absent); Urine White Blood Cell Trace(0-5/hpf) (Absent)
[2021-12-30] MEDS ORDERED: Nicotine GUM 4MG FRUIT FLAVOR PO ONE ×2 (02:32→10:34)
[2021-12-30] MEDS ORDERED: Al Hydrox/Mg Hydrox/Simet LIQ 30 ML UDC PO PRN (07:30)
[2021-12-30] MEDS ORDERED: LORazepam 1 MG TAB PER WAM PROTOCOL PO SCH (08:00)
[2021-12-30] MEDS: Vitamin THERAPEUTIC TAB PO SCH (09:00)
[2021-12-30] MEDS: Nicotine GUM 4MG FRUIT FLAVOR PO PRN ×2 (16:08→18:24)
[2021-12-31] MEDS: Nicotine GUM 4MG FRUIT FLAVOR PO PRN ×8 (07:08→21:50)
[2021-12-31] MEDS: Vitamin THERAPEUTIC TAB PO SCH (08:56)
[2022-01-01] MEDS: Nicotine GUM 4MG FRUIT FLAVOR PO PRN ×4 (06:00→12:27)
[2022-01-01] MEDS: Vitamin THERAPEUTIC TAB PO SCH (08:31)
[2022-01-01 08:55] VITALS: BP 125/81
== END 2022-01-01 13:52 | disposition home or self-care (01) | DRG 755 ==
LOC: ED 19:58 → EDHOLD 12-30 04:20 → BSU 12-30 07:00
PROVIDERS: ADMIT Psychiatry & Neurology Addiction Psychiatry; ATTEND Psychiatry & Neurology Addiction Psychiatry